=== PATIENT | male | born 1960 | race Caucasian/White ===

== ENCOUNTER 2017-01-27 13:34 | Emergency (ER) | payer BC, OTHER ==
[~2017-01-27] VITALS: Ht 172.7 cm; Wt 65.9 kg
[~2017-01-27 13:34] MED LIST: ASPIRIN E.C. 8181 MG PO; DESYREL 50MG50 MG PO; IMITREX50 MG PO; LEVSIN 0.10.125 MG/T PO; LOPRESSOR 550 MG/TAB PO; PREVACID 30MG30 M1 PO; WELLBUTRIN XL300 M1 PO
[2017-01-27 13:39] VITALS: TEMP 98.3
[2017-01-27] MEDS ORDERED: ZOLOFT 100MG100 MG PO (14:16)
[2017-01-27] MEDS ORDERED: CALAN120 MG PO (14:20)
[2017-01-27] MEDS ORDERED: VERELAN240 MG PO (14:20)
[2017-01-27 15:20] VITALS: BP 112/79; PULSE 81
== END 2017-01-27 15:20 | disposition home or self-care (01) ==
LOC: COL.ER 13:34
DX: I10 Essential (primary) hypertension (principal); R51 Headache; G43.909 Migraine, unspecified, not intractable, without status migrainosus
CPT/HCPCS: J1885

== ENCOUNTER 2017-08-04 23:05 | Emergency (ER) | payer BC ==
[~2017-08-04] VITALS: Ht 172.7 cm; Wt 65.9 kg
[~2017-08-04 23:05] MED LIST changes: +CALAN120 MG PO; +VERELAN240 MG PO; +ZOLOFT 100MG100 MG PO
[2017-08-04 23:07] VITALS: TEMP 99.1
[2017-08-04 23:25] LABS: BASO # 0.1 (0.0-0.2); BASO % 0.5 % (0.0-2.0); EOS # 0.2 (0.0-0.7); GRAN % 74.7 % (42.2-75.2); HEMATOCRIT 49.8 % (42.0-52.0); HEMOGLOBIN 17.1 g/dl (13.5-18.0); LYMPH # 3.2 (1.2-3.4); LYMPH % 18.2 % (20.0-51.0); MEAN CELL VOLUME 87 fl (80.0-100.0); MEAN CORPUSCULAR HEMOGLOBIN 30 pg (27.0-31.0); MEAN CORPUSCULAR HGB CONC 34 g/dl (33.0-37.0); MEAN PLATELET VOLUME 9.4 fl (7.4-10.4); MONO # 0.9 (0.1-0.6); MONO % 5.3 % (1.7-9.3); PLATELET COUNT 454 K/mm3 (130-400); RED BLOOD COUNT 5.72 M/mm3 (4.20-5.60); WHITE BLOOD COUNT 17.3 K/mm3 (4.8-10.8)
[2017-08-04 23:38] LABS: ADJUSTED CALCIUM 8.7 mg/dL (8.4-10.2); ALBUMIN 4.8 gm/dL (3.5-5.0); BILIRUBIN,TOTAL 0.6 mg/dL (0.0-1.0); CALCIUM 9.3 mg/dL (8.4-10.2); CREATININE, serum 1.5 mg/dL (0.66-1.25); TOTAL PROTEIN 7.5 gm/dL (6.4-8.2)
[2017-08-04 23:51] LABS: TROPONIN-I 0.068 ng/mL (0.000-0.034)
[2017-08-05 03:11] VITALS: BP 106/84; PULSE 66
== END 2017-08-05 03:10 | disposition home or self-care (01) ==
LOC: COL.ER 23:05
PROVIDERS: Emergency Medicine
DX: I47.1 Supraventricular tachycardia (principal); Z90.89 Acquired absence of other organs
CPT/HCPCS: J0153; J7030

== ENCOUNTER 2017-08-13 13:45 | Outpatient (CLI) | payer BC, OTHER ==
[~2017-08-13] VITALS: Ht 172.8 cm; Wt 66.2 kg
[2017-08-13 14:23] VITALS: BP 138/101; PULSE 61; TEMP 97.8
[2017-08-13 16:25] VITALS: BP 145/105; PULSE 62
== END 2017-08-13 16:39 | disposition home or self-care (01) ==
LOC: COL.CAR 13:45
DX: R55 Syncope and collapse (principal); I47.1 Supraventricular tachycardia; R00.1 Bradycardia, unspecified; K21.9 Gastro-esophageal reflux disease without esophagitis; N40.0 Benign prostatic hyperplasia without lower urinary tract symptoms; I25.10 Atherosclerotic heart disease of native coronary artery without angina pectoris; F32.9 Major depressive disorder, single episode, unspecified; I25.2 Old myocardial infarction
CPT/HCPCS: C1764

== ENCOUNTER 2017-10-13 17:18 | Emergency (ER) | payer BC ==
[~2017-10-13] VITALS: Ht 172.7 cm; Wt 63.6 kg
[2017-10-13 17:20] VITALS: TEMP 99.2
[2017-10-13 18:23] LABS: BASO % 0.4 % (0.0-2.0); EOS # 0.1 (0.0-0.7); EOS % 1.1 % (0-4.0); GRAN # 8.3 (1.4-6.5); GRAN % 81.9 % (42.2-75.2); HEMATOCRIT 44.2 % (42.0-52.0); HEMOGLOBIN 15.6 g/dl (13.5-18.0); LYMPH # 0.7 (1.2-3.4); LYMPH % 7.3 % (20.0-51.0); MEAN CELL VOLUME 87 fl (80.0-100.0); MEAN CORPUSCULAR HEMOGLOBIN 31 pg (27.0-31.0); MEAN CORPUSCULAR HGB CONC 35 g/dl (33.0-37.0); MONO # 0.9 (0.1-0.6); MONO % 8.9 % (1.7-9.3); PLATELET COUNT 285 K/mm3 (130-400); RED BLOOD COUNT 5.11 M/mm3 (4.20-5.60); REDCELL DISTRIBUTION WIDTH-CV 12.5 % (11.5-14.5)
[2017-10-13 18:30] LABS: CALCIUM 9.1 mg/dL (8.4-10.2); CREATININE, serum 1.15 mg/dL (0.66-1.25); POTASSIUM 3.9 mmol/L (3.4-5.0)
[2017-10-13] MEDS ORDERED: PREDNISONE20 MG PO (18:45)
[2017-10-13] MEDS ORDERED: TESSALON P100 MG/CAP PO (18:45)
[2017-10-13 18:56] VITALS: BP 112/65; PULSE 76
== END 2017-10-13 18:58 | disposition home or self-care (01) ==
LOC: COL.ER 17:18
PROVIDERS: Emergency Medicine
DX: J06.9 Acute upper respiratory infection, unspecified (principal); K21.9 Gastro-esophageal reflux disease without esophagitis; Z86.79 Personal history of other diseases of the circulatory system; Z90.89 Acquired absence of other organs; Z98.818 Other dental procedure status; Z79.82 Long term (current) use of aspirin

== ENCOUNTER 2018-11-01 12:16 | Emergency (ER) | payer BC ==
[~2018-11-01] VITALS: Ht 172.7 cm; Wt 65.9 kg
[~2018-11-01 12:16] MED LIST changes: +PREDNISONE20 MG PO; +TESSALON P100 MG/CAP PO
[2018-11-01 12:21] VITALS: TEMP 97.6
[2018-11-01 12:38] LABS: BASO % 0.5 % (0.0-2.0); EOS # 0.2 (0.0-0.7); EOS % 2.9 % (0-4.0); GRAN # 4.2 (1.4-6.5); GRAN % 68.4 % (42.2-75.2); HEMATOCRIT 46.3 % (42.0-52.0); LYMPH # 1.4 (1.2-3.4); LYMPH % 23.1 % (20.0-51.0); MEAN CELL VOLUME 88 fl (80.0-100.0); MEAN CORPUSCULAR HEMOGLOBIN 30 pg (27.0-31.0); MEAN CORPUSCULAR HGB CONC 35 g/dl (33.0-37.0); MEAN PLATELET VOLUME 9.2 fl (7.4-10.4); MONO # 0.3 (0.1-0.6); MONO % 4.9 % (1.7-9.3); PLATELET COUNT 330 K/mm3 (130-400); RED BLOOD COUNT 5.27 M/mm3 (4.20-5.60); REDCELL DISTRIBUTION WIDTH-CV 12.4 % (11.5-14.5)
[2018-11-01 12:45] LABS: INR 1.1 (0.8-3.0); PROTHROMBIN TIME 12.3 SECONDS (9.7-12.8)
[2018-11-01 12:47] LABS: PARTIAL THROMBOPLASTIN TIME 34.3 SECONDS (26.0-37.0)
[2018-11-01 12:56] LABS: ALANINE AMINOTRANSFERASE 24 U/L (21-72); ALBUMIN 4.4 gm/dL (3.5-5.0); ALKALINE PHOSPHATASE 108 U/L (50-136); ANION GAP 12 mmol/L (7-16); AST,SGOT 28 U/L (15-37); BILIRUBIN,TOTAL 0.6 mg/dL (0.0-1.0); BLOOD UREA NITROGEN 13 mg/dL (9-20); CARBON DIOXIDE 23 mmol/L (22-30); CHLORIDE 106 mmol/L (98-107); CREATININE, serum 1.06 mg/dL (0.66-1.25); GLUCOSE 97 mg/dL (74-106); POTASSIUM 3.7 mmol/L (3.4-5.0); SODIUM 141 mmol/L (137-145); TOTAL PROTEIN 7.3 gm/dL (6.4-8.2)
[2018-11-01 13:12] LABS: TROPONIN-I < 0.012 ng/mL (0.000-0.035)
[2018-11-01] MEDS ORDERED: ISOPTIN SR120 MG PO (13:13)
[2018-11-01] MEDS ORDERED: ELMIRON 10100 MG/CA1 (13:13)
[2018-11-01 13:55] VITALS: BP 115/88; PULSE 57
== END 2018-11-01 13:55 | disposition home or self-care (01) ==
LOC: COL.ER 12:16
PROVIDERS: Family Medicine
DX: R07.89 Other chest pain (principal); I10 Essential (primary) hypertension; K21.9 Gastro-esophageal reflux disease without esophagitis; Z79.82 Long term (current) use of aspirin

== ENCOUNTER 2020-01-19 14:50 | Emergency (ER) | payer OTHER ==
[~2020-01-19] VITALS: Ht 172.7 cm; Wt 63.6 kg
[~2020-01-19 14:50] MED LIST changes: +ELMIRON 10100 MG/CA1; +ISOPTIN SR120 MG PO
[2020-01-19 15:03] VITALS: BP 166/102; TEMP 98.6
[2020-01-19] MEDS ORDERED: MOBIC 7.5MG7.5 MG PO (16:56)
[2020-01-19 17:32] VITALS: PULSE 72
== END 2020-01-19 17:32 | disposition home or self-care (01) ==
LOC: COL.ER 14:50
DX: S00.81XA Abrasion of other part of head, initial encounter (principal); I10 Essential (primary) hypertension; F32.9 Major depressive disorder, single episode, unspecified; K21.9 Gastro-esophageal reflux disease without esophagitis; Z79.82 Long term (current) use of aspirin; V47.5XXA Car driver injured in collision with fixed or stationary object in traffic accident, initial encounter

== ENCOUNTER 2020-06-26 13:35 | Emergency (ER) | payer OTHER ==
[~2020-06-26] VITALS: Ht 172.7 cm; Wt 63.6 kg
[~2020-06-26 13:35] MED LIST changes: +MOBIC 7.5MG7.5 MG PO
[2020-06-26 15:25] VITALS: BP 138/87; PULSE 55; TEMP 98.4
== END 2020-06-26 15:40 | disposition home or self-care (01) ==
LOC: COL.ER 13:35
DX: S46.201A Unspecified injury of muscle, fascia and tendon of other parts of biceps, right arm, initial encounter (principal); Z79.82 Long term (current) use of aspirin; Z79.52 Long term (current) use of systemic steroids; X50.9XXA Other and unspecified overexertion or strenuous movements or postures, initial encounter; Y92.59 Other trade areas as the place of occurrence of the external cause; Y99.0 Civilian activity done for income or pay

== ENCOUNTER → 2020-07-14 | Outpatient (CLI) | payer OTHER | LOC: ZCOL.LAB 13:40 | DX: R07.89 Other chest pain (principal) ==

== ENCOUNTER → 2020-07-15 | Outpatient (CLI) | payer OTHER | LOC: ZCOL.LAB 10:58 | DX: R07.89 Other chest pain (principal) ==